=== PATIENT | male | born 1990 | race Caucasian/White ===

== ENCOUNTER 2018-03-24 22:05 | Emergency (ER) | payer OTHER ==
[~2018-03-24] VITALS: Ht 175.3 cm; Wt 72.7 kg
[2018-03-24 23:38] VITALS: BP 150/99
== END 2018-03-24 23:52 | disposition home or self-care (01) ==
LOC: EMS 22:07
DX: H69.82 Other specified disorders of Eustachian tube, left ear (principal); J06.9 Acute upper respiratory infection, unspecified